=== PATIENT | male | born 1935 | race Caucasian/White ===

== ENCOUNTER 2021-03-03 09:19 | Day surgery (SDC) | payer MEDICARE, BC ==
[~2021-03-03] VITALS: Ht 167.6 cm; Wt 54.5 kg
[~2021-03-03 09:19] MED LIST: ASCO-321 PO; CARB1TAB24 PO; CITA-311 PO; CYAN500T71 PO; FINA5TAB11 PO; FLO0.4C PO; FOLI0.4T6 PO; HYDR500C2 PO; MELA10TA2 PO; MULT-1085 PO; POLY119P2 PO
[2021-03-03 09:35] VITALS: BP 137/68
[2021-03-03] MEDS ORDERED: ASPI-920 PO (09:56)
[2021-03-03] MEDS ORDERED: LIDOcaine Viscous 15ml cup ONE (10:16)
[2021-03-03] MEDS ORDERED: MIDAZolam 1 MG/ML 5ML VIAL ONE (10:16)
[2021-03-03] MEDS ORDERED: fentaNYL/PF 50MCG/1 ML 2ML syringe ONE (10:16)
[2021-03-03 10:48] VITALS: BP 157/82
[2021-03-03 10:58] VITALS: BP 135/64
[2021-03-03 11:08] VITALS: BP 133/64
== END 2021-03-03 11:20 ==
LOC: GI LAB 09:19
PROVIDERS: ATTEND Internal Medicine Gastroenterology
DX: Z43.1 Encounter for attention to gastrostomy (principal); G20 Parkinson's disease; N18.9 Chronic kidney disease, unspecified; Z88.8 Allergy status to other drugs, medicaments and biological substances; Z79.82 Long term (current) use of aspirin; Z79.899 Other long term (current) drug therapy
CPT/HCPCS: 43247; 99153; C1769; C1773; G0500; J2250; J3010; J7040; Z7512; 99152; A4620